=== PATIENT | male | born 1940 | race Caucasian/White ===

== ENCOUNTER 2016-12-18 00:25 | Day surgery (SDC) | payer MEDICARE ==
[~2016-12-18] VITALS: Ht 182.9 cm; Wt 137.0 kg
[2016-12-18] VITALS (11 sets, daily range): BP systolic 128–147; BP diastolic 59–71; PULSE 54–63; RESP 12–20; O2SAT 92–95
[~2016-12-18 00:25] MED LIST: ASPI-973 PO; DILT240C87 PO; HYDR25TA4 PO; IRBE300T18 PO; ROSU5TAB9 PO; SILD100T PO
[2016-12-18 08:59] LABS: EOSINOPHILS % (AUTO) 5.4 % (0-5); MONOCYTES % (AUTO) 10.5 % (4-12); Mean Corpuscular Hemoglobin 29.2 pg (27.0-35.0); Mean Corpuscular Volume 86.4 fL (81-100); NEUTROPHILS % (AUTO) 54.9 % (40-74); Platelet Count 242 bil/L (150-400)
--- NOTE | 2016-12-18 09:15 | NUR ---
Pt admitted for heart cath with Dr Medeiros, he is accompanied by his spouse.
[2016-12-18] MEDS ORDERED: 0.9% Sodium Chloride 1,000 ML ONE ×2 (09:39→10:08)
[2016-12-18] MEDS ORDERED: Heparin 1,000 Unit/mL 10 mL Inj ONE (10:08)
[2016-12-18] MEDS ORDERED: Nitroglycerin 50,000 mcg/250 mL D5W Premix IV ONE (10:08)
[2016-12-18] MEDS ORDERED: Heparin 1,000 Units/500 mL NS Premix IV ONE (10:09)
[2016-12-18] MEDS ORDERED: fentaNYL-PF 50 mCg/mL 2 mL Inj ONE (10:39)
--- NOTE | 2016-12-18 12:12 | PCM.CVCATH ---
Cardiac Cath Report Date of Service Dec 18, 2016 Primary Indication Symptomatic severe aortic stenosis Procedure coronary angiography and right heart cath Vascular Access Right radial artery Right femoral artery using 6 Fr sheath, closure with TR band. Right internal jugular vein using 6 Fr sheath, closure with manual hold. Diagnostic Catheters Left main: [place] 4.5, 5 Fr RCA: JR4, 6Fr Procedure Details Coronary angiography details: The patient was brought to the cardiac catheterization lab in the fasting state. Patient was laid supine on the cardiac catheterization table and the right forearm and right neck were prepped and draped in the usual sterile fashion. One percent Xylocaine was infiltrated over the right internal jugular vein and right radial artery. Vascular access was then achieved under ultrasound guidance. [place] was completed first. Guide wire was then used to advance the catheter through the sheath and up into aortic sinuses. After coronary angiography was completed, guide wire was advanced through the catheter ahead of the tip of the catheter and the guide wire along with the catheter were pulled together out of the sheath. Medications/Fluoro Time Medications administered: 1.Fentanyl: 100 mcg IV 2. Midazolam: 2 mg IV 3. Heparin: 6000 units IV 4. Nitroglycerin: 300 mcg IA Fluoroscopy Time: 13.1 minutes, 2163 mGy Contrast (Isovue): 100 mls Blood loss: 10 mls Findings 1) Coronary angiography: Left dominance a. Left main is short and angiographically normal b. LAD is normal caliber with mild luminal irregularities. There is a medium caliber diagonal artery with mild luminal irregularities. c Ramus intermedius is a medium caliber vessel with 60-70% steonsis proximally. d. LCx is dominant vessel giving rise to a medium caliber posterior descending artery (PDA). The PDA has 60-70% stenosis in the mid vessel. e. RCA is non-dominant vessel with 70-80% tubular stenosis in the mid vessel. 2) Right heart cath: * RA Mean Pressure 0 mmHg * RV Pressure 29/0 (RVEDP 4 mmHg) * PA Pressure 27/1 mmHg * PCWP 5 mmHg * Chad Cardiac Output 7.5 L/min / Chad Cardiac Index 2.95 L/min/m2 Complications There were no periprocedural complications identified. Summary 1) Borderline lesions in the mid-PDA and proximal ramus artery, which are best managed medically. 2) Obstructive lesion in the mid non-dominant RCA, which is also best managed medically. 3) Normal right sided filling pressures, left sided filling pressures, pulmonary artery pressures, and cardiac output. Recommendations 1) Proceed with aortic valve replacement. Patient can be considered for TAVR or surgical AVR. 2) Medical management of coronary artery disease as noted in the summary section. copies to: Rafa Navas MD, Bhrigu R MD Dec 18, 2016 12:12
--- NOTE | 2016-12-18 16:11 | NUR ---
Patient's TR band removed slowly over one hour from 14:14 through 15:15. Opsite transparent dressing placed over right radial puncture site. Patient observed x 30 minutes. He ambulated to bathroom, no difficulty with radial site or IJ/neck site observed.At 15:50 patient discharged home ambulatory following instructions with patient and spouse.
== END 2016-12-18 23:59 | disposition home or self-care (01) ==
LOC: SOUO 00:25
PROVIDERS: ATTEND Internal Medicine Cardiovascular Disease
DX: I35.0 Nonrheumatic aortic (valve) stenosis (principal); I25.10 Atherosclerotic heart disease of native coronary artery without angina pectoris; I10 Essential (primary) hypertension; E78.5 Hyperlipidemia, unspecified; G47.33 Obstructive sleep apnea (adult) (pediatric); Z79.82 Long term (current) use of aspirin; E66.01 Morbid (severe) obesity due to excess calories; Z68.41 Body mass index [BMI] 40.0-44.9, adult
CPT/HCPCS: 36415; 80048; 85025; 85610; 93456; 99152; 99153; C1729; C1769; C1887; C1894; J1644; J2250; J3010; J7030; Q9967

== ENCOUNTER → 2017-06-18 | Day surgery (SDC) | payer MEDICARE ==
[2017-06-18] VITALS (9 sets, daily range): BP systolic 141–164; BP diastolic 69–83; PULSE 55–72; RESP 14–17; O2SAT 92–97
[~2017-06-18] VITALS: Ht 182.9 cm; Wt 131.6 kg
[~2017-06-18] MED LIST changes: +Ampicillin 2,000 mg/50 mL NS Minibag Plus IV SCH; +Belladonna Alk-Opium 60 mg Rectal Suppository RECTAL ONE; -DILT240C87 PO; +DILT240C89 PO; +EPHEDrine Sulfate 50 mg/mL Inj IVPUSH PRN; +EPHEDrine/NS 5 mg/mL 5 mL Syringe ONE; +Gentamicin 200 mg/100 mL D5W IV SCH; +Glycopyrrolate 0.2 mg/mL 5 mL Inj ONE; +HYDR-3940 PO; +HYDROcodone-APAP 5-325 mg Tablet PO PRN; +HYDROmorphone 1 mg/mL Inj IVPUSH PRN; +Ketamine 10 mg/mL 20 mL Inj ONE; +Lactated Ringer's 1,000 ML IV ONE; +Lactated Ringer's 1,000 ML IV SCH; +Lactated Ringer's 500 ML IV PRN; +MetoCLOpramide 5 mg/mL 2 mL Inj IVPUSH PRN; +Mitomycin Inj 40 MG in Syringe 1 EACH IRRIGATION ONE; +Ondansetron 2 mg/mL 2 mL Inj IVPUSH PRN; +Phenylephrine 10,000 mCg/mL Inj IVPUSH PRN; +Propofol 10 mg/mL 20 mL Inj ONE; +Succinylcholine Chloride 20 mg/mL 5 mL Inj ONE; +TAMS0.4C98 PO; +fentaNYL-PF 50 mCg/mL 2 mL Inj IVPUSH PRN; +fentaNYL-PF 50 mCg/mL 2 mL Inj ONE; +hydrALAZINE 20 mg/mL Inj ONE
--- NOTE | 2017-06-18 16:02 | PCM.HPANE ---
Patient Data Date of Service: Jun 18, 2017 Surgeon Admitting Provider: Attending Provider:Cesar Wells MD Primary Care Physician:Rafa Navas MD Other Provider:Valerie Chiang Anesthesia Reason for Visit Bladder Tumor Ht/WT & BMI Height (Feet): 6 Height (Inches): 0.00 Weight (Kilograms): 131.6 Body Mass Index 39.00 Allergies Uncoded Allergies: STATINS (Adverse Reaction, Unknown, myalgias, 06/15/17) Past Anesthesia History Anesthesia History: Denies:: Abnormal Airway, Anesthesia Reactions, Difficult Intubation, Fam Anesthesia Reaction, Fam Malignant Hypertherm, Malignant Hyperthermia Diabetes History Hx Diabetes?: No MRSA MRSA: No Medications Blood Thinner: Aspirin Hypertension Medication: Yes Home Meds Incl Beta Becky: No Reported Medications Sildenafil Citrate (Viagra)100 Mg [id number] Mg PO UD PRN erectile dysfunction Ref 0 06/15/17 Tamsulosin (Flomax)0.4 Mg Capsule0.4 Mg PO DAILY Ref 0 06/15/17 Rosuvastatin Calcium 5 Mg Tablet2.5 Mg PO HS 06/15/17 Irbesartan 300 Mg Zuqtkj633 Mg PO DAILY 06/15/17 Hydrochlorothiazide 25 Mg Damjjl36 Mg PO DAILY 30 Days Ref 0 06/15/17 Hydralazine 50 Mg Jlwagj60 Mg PO TID Ref 0 06/15/17 Diltiazem ER 240 Mg Cap.er.53s097 Mg PO BID Ref 0 06/15/17 Aspirin 81 Mg Qwvvia43 Mg PO DAILY Ref 0 06/15/17 Discontinued Reported Medications Sildenafil Citrate (Viagra)100 Mg Bfmzzg099 Mg PO 12/17/16 Rosuvastatin Calcium 5 Mg Tablet2.5 Mg PO 12/17/16 Irbesartan 300 Mg Vwwxng054 Mg PO 12/17/16 Hydrochlorothiazide 25 Mg Ooruyd22 Mg PO DAILY 12/17/16 Diltiazem ER 240 Mg Capsule.er240 Mg PO BID 12/17/16 Aspirin 81 Mg Myvytf52 Mg PO DAILY 12/17/16 History History of ENT Problems?: No HEENT History: Positive for:: Cataracts (cataract surgery) Hearing Problem Denies:: Abnormal Airway Difficult Intubation Dysphagia Glaucoma Sinus Problem TMJ Denture Type: None Teeth Condition: Within Normal Limits Hx of Heart Problems?: Yes Cardiovascular History: Positive for:: Cardiac Surgery Hypertension Valvular Heart Disease Denies:: AICD Abdominal Aortic Aneurism Atrial Fibrillation Congestive Heart Failure Coronary Artery Disease Edema Heart Murmur Irregular Heartbeat Pacemaker Peripheral Vascular Other History/Comments CAD medically managed, s/p TAVR several months ago, reports doing exceptionally well since. TTE 05/2017 with Good biventricular fn, EF 60%, good functioning bioprosthesis Hx of Respiratory Problem?: Yes Respiratory History: Positive for:: Pneumonia (prior hx of) Use of C-PAP Machine Denies:: Asthma COPD Emphysema Oxygen Administration Tuberculosis Hx Neurologic Problems?: No Neurological History: Denies:: CVA Headaches Multiple Sclerosis Parkinson's Disease Seizures TIA Hx of GI Problems?: No Hx of Problems?: Yes Other Pertinent History: bladder tumor current admission problem Skin History: Positive for:: History Skin Disorders? (skin cancer) Hx Musculoskeletal Problems?: Yes Musculoskeletal History: Positive for:: Osteoarthritis Denies:: Back Injury Degenerative Joint Fibromyalgia Joint Replacement Musculoskeletal Trauma Myasthenia Gravis Systemic Lupus Hx of Psycho/Social Problems?: No Psycho Social History: Denies:: Anxiety Hx Depression Hx Surgeries?: Yes (appendectomy,hernia repair,deviated septum) Hx Any Other Health Problems?: Yes Other History: Positive for:: Cancer (bladder) Denies:: Thyroid Disease History Blood Transfusions: Positive for:: Accept Blood Products? Denies:: Blood Transfusions Hx Diabetes: No Hx Alcohol Use: Yes (drink daily)Alcoholic Drinks Per Day: 2Hx Substance Use: No Smoking Status: Never Smoker Stop/Bang Treated for Sleep Apnea?: Yes Do You Have a CPAP Machine?: Yes P-Blood Pressure: treated: Yes B- Body Mass Index > 35 kg/m2: Yes A- Age over 50: Yes N- Neck Large Circumference: Yes G- Gender Male: Yes REBECCA Risk Assessment: High Risk, =/>3 Yes REBECCA Category 4 OutPt Procedure: Yes Risk Assessment Category Category 1A: Patient has history of documented sleep apnea, and HAS NOT received any narcotic, sedative or anesthesia administration during this stay. Category 1B: Patient has history of documented sleep apnea, and HAS received any narcotic , sedative or anesthesia administration during this stay Category 2: Patient has SUSPECTED Obstructive Sleep Apnea, and HAS received any narcotic , sedative or anesthesia administration during this stay. Category 3: Patient has SUSPECTED Obstructive Sleep Apnea and HAS NOT received narcotic, sedative or anesthesia administration during this stay. Category 4: Outpatient in Procedural Areas with known sleep apnea or who screen positive for High Risk via the STOP/BANG questionnaire. Exam Exam Vital Signs Vital Signs Date Time Temp Pulse Resp B/P Pulse Ox O2 Delivery O2 Flow Rate FiO2 06/18/17 12:29 36.1 55 16 148/69 94 Room Air General Appearance: Alert, Oriented X3, Cooperative, No Acute Distress HEENT/AIRWAY: MP 2 Lungs: Clear to Auscultation, Normal Air Movement Heart: Regular Rate/Rhythm, Normal S1, Normal S2, Murmur Plan Impression Patient chart reviewed, patient interviewed and anesthestic plan with risks, benefits, and alternatives discussed, and informed consent obtained. NPO per Anesth. Guidelines: Yes ASA Physical Status: ASA3 Severe Disease Anesthetic Plan: GA Bene/Risks/Altern/Consents: Yes HP Complete Prior to Induction: Yes David Newman MD Jun 18, 2017 16:01
--- NOTE | 2017-06-18 19:13 | PCM.SURGPO ---
Immediate Operative Note Date of Surgery: Jun 18, 2017 Pre Operative Diagnosis Bladder tumors Post Operative Diagnosis Bladder tumors Procedure Cystoscopy, transurethral resection of bladder tumors (> 5 cm)(modifier 22) Surgeon and Director Of Pharmacy Surgeon: Cesar Wells MD Assistants: None Findings Cystoscopy revealed papillary bladder tumors on R inferior posterolateral wall ( posterior to R ureteral orifice)(approx. 1-2cm), L inferior posterolateral wall (posterior to L ureteral orifice)(approx. 2-3cm), L lateral wall (approx. 5-6cm) , and anterior wall (multiple tumors, approx. 4-5cm in total diameter). Bladder tumors were resected using bipolar loop electrocautery. B/L ureteral orifices were intact and well-preserved at the end of the case. Of note, a extra-long resectoscope was needed to be used during the case. Complications There were no periprocedural complications identified. Surgical Specimen Removed: Yes Specimen sent to Pathology: Yes Surgical Specimen description: R inferior posterolateral wall bladder tumor, L inferior posterolateral wall bladder tumor, L lateral wall bladder tumor, anterior wall bladder tumors Anesthetic Administered: GA Grafts, Implants: Other (20F Warner catheter to straight drainage) Output, Estimated Blood Loss: 30 Blood Admin during surgery: No Additional information Patient to be discharged home when stable, to return to see me in 1.5 weeks for post-op visit and trial of void. Cesar Wells MD Jun 18, 2017 19:13
--- NOTE | 2017-06-18 19:26 | PCM.ANEP1 ---
Post Anesthesia PACU Phase 1 Assessment Date of Service: Jun 18, 2017 Vital Signs Vital Signs Date Time Temp Pulse Resp B/P Pulse Ox O2 Delivery O2 Flow Rate FiO2 06/18/17 19:03 71 15 154/76 95 Simple Mask 8 100 06/18/17 18:58 36.1 69 14 141/71 95 Simple Mask 8 100 06/18/17 12:29 36.1 55 16 148/69 94 Room Air Anesthetic Administered: GA Level of Alertness: Awake, talking BARNES's with Equal Strength: Yes Pain: No Nausea or Vomiting: No CV Function & Hydration Stable: Yes Airway Device: Oxygen Delivery: Nasal Cannula Lungs: Normal Air Movement PACU Phase 2 Assessment Complications: No Follow up Care: No Patient Instructions Provided: Yes Comments Very wakeful, comfortable, but irritated by catheter. Not obstructing, on just 3L via NC, expect to wean quickly. David Newman MD Jun 18, 2017 19:26
--- NOTE | 2017-06-18 20:20 | PCM.DISURG ---
Surgical Discharge Instruction Date of Service Jun 18, 2017 Dates of Hospitalization Date of Hospital Admission Jun 18, 2017 Providers Admitting Physician: Cesar Wells MD Primary Care Physician: Rafa Navas MD Attending Physician: Cesar Wells MD Discharge Diagnosis Discharge Diagnosis Bladder tumors Post Operative diagnosis Bladder tumors Diet Discharge Diet: No restrictions, Other (Drink at least 10-12 8oz. glasses (3 liters) of fluids per day as long as there is blood in the urine) Activity Discharge Activity-General: No driving while taking narcotic, Other (No strenuous exercise/activity or moderate or heavy lifting (> 10 lbs.) for 1-2 weeks) Dressing and Incisional Care Hygiene: May shower Follow Up Plan Follow-up Provider (F9): Cesar Wells MD Follow-up appointment: Weeks (1.5 weeks for post-op visit and trial of void) Call your provider for: Fever, Chills, Vomiting, Other (Non-draining Warner catheter, pain uncontrolled by pain medications) Cesar Wells MD Jun 18, 2017 20:20
--- NOTE | 2017-06-19 18:54 | OP ---
[address] [address] OPERATIVE REPORT PATIENT: LIBERTAD TIRADO : 1940 MR#: [id number] ADMIT: 06/18/2017 JOB ID: [id number] DATE OF SURGERY: 06/18/2017 PREOPERATIVE DIAGNOSIS(ES): Bladder tumors. POSTOPERATIVE DIAGNOSIS(ES): Bladder tumors. PROCEDURE: Cystoscopy, transurethral resection of bladder tumors (greater than 5 cm), (modifier 22). SURGEON: Cesar Wells MD. FACTORY REPRESENTATIVE: None. ANESTHESIA: General. ESTIMATED BLOOD LOSS: 30 mL. SPECIMENS: Right inferior posterolateral wall bladder tumor, left inferior posterolateral wall bladder tumor, left lateral wall bladder tumor, anterior wall bladder tumors. DRAINS: 20-Welsh Awrner catheter to straight drainage. COMPLICATIONS: None. CONDITION: Stable. FINDINGS: Cystoscopy revealed papillary bladder tumors on right inferior posterolateral wall (posterior to the right ureteral orifice) (approximately 1-2 cm), left inferior posterolateral wall (posterior to the left ureteral orifice) (approximately 2-3 3 cm), left lateral wall (approximately 5-6 cm), and anterior wall (multiple tumors, approximately 4-5 cm in total diameter). Bladder tumors were resected using bipolar loop electrocautery. Bilateral ureteral orifices were intact and well-preserved at the end the case. Of note. an extra long resectoscope was needed to be used during the case. INDICATIONS: The patient is a 77-year-old male found on office cystoscopy to have multiple bladder tumors. The patient now presents for cystoscopy, transurethral resection of bladder tumors, possible bilateral ureteral stent placement and mitomycin intravesical instillation. PROCEDURE: The patient was brought to the operating room and placed supine on the operating room table. The patient was given ampicillin and gentamicin IV antibiotics. Sequential compression device boots were placed. General anesthesia was administered. The patient was brought down into dorsal lithotomy position. The patient was prepped and draped in a standard surgical fashion. A 26-Welsh continuous flow resectoscope was placed through the urethral meatus and into the distal urethra without difficulty. Of note, later on during the case, the continuous-flow resectoscope was changed to an extra long continuous-flow resectoscope, secondary to the long length of the patient's urethra and prostatic urethra. Cystoscopy revealed normal distal urethra. Bilobar prostatic hypertrophy. Bilateral ureteral orifices in normal position. Moderately trabeculated bladder and multiple papillary bladder tumors on the right inferior, posterolateral wall (posterior to the right ureteral orifice) (approximately 1-2 approximately 1-2), left inferior posterolateral wall (posterior to the left ureteral orifice) (approximately 2-3 cm), left lateral wall (approximately 5-6 cm), and anterior wall (multiple tumors, approximately 4-5 cm in total diameter). The bladder tumors were resected using Thunderbeat bipolar loop electrocautery. The base the bases of the bladder tumor. The bases of the bladder tumor resected areas including normal surrounding bladder mucosa were fulgurated using Thunderbeat bipolar rollerball electrocautery. Specimens were sent to Pathology for permanent specimen. Excellent hemostasis was achieved. No evidence for bladder perforation was seen. Bilateral ureteral orifices were seen to be intact and well-preserved at the end the case with clear yellow urine efflux from bilateral ureteral orifices. Of note, an extra long resectoscope was needed to be used during the case. Of note, a modifier 22 is being applied to this case secondary to the difficulty of the case secondary to the large number of bladder tumors which need to be resected and secondary to the large size of the bladder tumors and secondary to the case taking approximately 50% longer than usual for this type of case. Thus, a modifier 22 is being applied to this case. Also secondary to the difficult location of the tumors on the anterior wall. Bilateral ureteral orifices were seen to be intact and well-preserved at the end the case. Of note, an extra long resectoscope was needed to be used during the case. The continuous-flow resectoscope was removed from the patient. A 20-Welsh Warner catheter was placed through the urethra and into the bladder without difficulty. Warner catheter balloon was inflated with 10 mL sterile water. Warner catheter was placed to straight drainage. The skin was cleaned and dried. The patient was placed in supine position. The patient was awakened from general anesthesia and transferred to the recovery room in stable condition. The patient tolerated the procedure well. Plan is for the patient be discharged home with a Warner catheter when stable and to return to see me in the office in 1-1/2 weeks for postop visit and trial of void.
--- NOTE | 2017-06-24 14:50 | PATH ---
SURGICAL PATHOLOGY Attending Physician:Cesar Wells MD CASE STATUS: Signed Out PATIENT NAME: LIBERTAD TIRADO PID: [id number] : 1940 DATE COLLECTED:06/18/2017 00:00 SPECIMEN: 1: Bladder, Biopsy 2: Bladder, Biopsy 3: Bladder, Biopsy 4: Bladder, Biopsy CLINICAL HISTORY: BLADDER TUMOR 1). RIGHT INFERIOR, POSTERIOR LATERAL BLADDER TUMOR 2). LEFT INFERIOR, POSTERIOR, LATERAL BLADDER TUMOR 3). LEFT LATERAL WALL BLADDER TUMOR 4). ANTERIOR WALL BLADDER TUMOR FINAL DIAGNOSIS: 1. 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 Lymphovascular invasion not identified. Muscularis propria is present and not involved. 2. Left Inferior Posterior Lateral Bladder Tumor, Transurethral Resection: High-grade papillary urothelial carcinoma. Negative for lamina propria invasion. Muscularis propria not present. 3. Left Lateral Wall Bladder Tumor, Transurethral Resection: High-grade papillary urothelial carcinoma. Negative for lamina propria invasion. Muscularis propria is present and not involved. 4. Anterior Wall Bladder Tumor, Transurethral Resection: High-grade papillary urothelial carcinoma. Negative for lamina propria invasion. Muscularis propria is present and not involved. ICD10: C67.9 GROSS DESCRIPTION: 1. Received in formalin, labeled with the patient's name and designated "right inferior/posterior/lateral bladder tumor" is a 3.0 x 2.0 x 0.3 cm aggregate of multiple mcgill-pink soft tissues which are entirely submitted in cassette A1. 2. Received in formalin, labeled with the patient's name and designated "left inferior/posterior/lateral bladder tumor" are six mcgill irregular soft tissues averaging 0.3 x 0.3 x 0.2 cm, which are entirely submitted in cassette 2A. 3. Received in formalin, labeled with the patient's name and designated "left lateral wall" is a 3.0 x 2.0 x 0.3 cm aggregate of multiple mcgill-pink rubbery tissues which are entirely submitted in cassette 3A. 4. Received in formalin, labeled with the patient's name and designated "anterior wall bladder" is a 2.8 x 2.3 x 0.3 cm aggregate of multiple irregular mcgill-pink rubbery tissues which are entirely submitted in cassette 4A. ([id number]) ICD-9 CODES: CPT CODES: 1: 50280 2: 74343 3: 77046 4: 78367 Electronically Signed Out Jelly Odonnell MD [facility] [address], [place] [address] Technical component performed at [facility], [address], [place], [address]
== END | disposition home or self-care (01) ==
LOC: SAS 11:54
PROVIDERS: ATTEND Urology
DX: C67.4 Malignant neoplasm of posterior wall of bladder (principal); C67.2 Malignant neoplasm of lateral wall of bladder; C67.3 Malignant neoplasm of anterior wall of bladder; N40.1 Benign prostatic hyperplasia with lower urinary tract symptoms; R33.9 Retention of urine, unspecified; R35.0 Frequency of micturition; R39.15 Urgency of urination; I10 Essential (primary) hypertension; I25.10 Atherosclerotic heart disease of native coronary artery without angina pectoris; G47.33 Obstructive sleep apnea (adult) (pediatric); E78.5 Hyperlipidemia, unspecified; I35.0 Nonrheumatic aortic (valve) stenosis; Z79.82 Long term (current) use of aspirin
CPT/HCPCS: 52240; J0290; J0330; J0360; J1580; J2704; J3010; J7120